=== PATIENT | male | born 1960 | race Caucasian/White ===

== ENCOUNTER 2016-07-17 11:56 | Emergency (ER) | payer MEDICAID ==
[~2016-07-17] VITALS: Ht 180.3 cm; Wt 100.0 kg
[~2016-07-17 11:56] MED LIST: METH20TA PO; TRAM-28 PO
[2016-07-17 12:15] VITALS: BP 155/107
== END 2016-07-17 14:12 | disposition home or self-care (01) ==
LOC: ED 13:44
DX: Z76.0 Encounter for issue of repeat prescription (principal); F90.9 Attention-deficit hyperactivity disorder, unspecified type; R20.2 Paresthesia of skin; M79.601 Pain in right arm; G89.29 Other chronic pain; I10 Essential (primary) hypertension; E11.9 Type 2 diabetes mellitus without complications; J44.9 Chronic obstructive pulmonary disease, unspecified; Z88.0 Allergy status to penicillin; Z88.5 Allergy status to narcotic agent
CPT/HCPCS: 99284